=== PATIENT | female | born 1985 | race Two or more races ===

== ENCOUNTER → 2021-01-16 | Emergency (ER) | payer MEDICAID ==
[~2021-01-16] VITALS: Ht 162.6 cm; Wt 86.2 kg
[~2021-01-16] MED LIST: diphenhdrAMINE HCL 25 MG CAP PO ONE; methylPREDNISolone SOD SUCC 125 MG/2 ML VL IM ONE
[2021-01-16 20:44] VITALS: BP 150/92
== END | disposition home or self-care (01) ==
LOC: ER 19:30
DX: L25.9 Unspecified contact dermatitis, unspecified cause (principal)
CPT/HCPCS: 96372; 99283; J2930

== ENCOUNTER 2024-08-30 03:39 | Inpatient (IN) | payer BC, MEDICAID ==
[~2024-08-30] VITALS: Ht 162.6 cm; Wt 87.2 kg
[2024-08-30] VITALS (7 sets, daily range): BP systolic 117–127; BP diastolic 63–78; PULSE 64–80; RESP 12–20; TEMP 97.5–98; O2SAT 96–100
[2024-08-30] MEDS: ONDANSETRON ODT 4 MG TAB PO ONE (04:00)
--- NOTE | 2024-08-30 04:17 | ED.PDOC ---
History of Present Illness HPI Comments 38 y/o obese F, with a history of asthma and cholecystectomy, presents with c/o 10/10 sharp, epigastric abdominal pain, that radiates to her back, with associated nausea and chills, after eating 'rice and shrimp' 12x hours ago. Patient endorses on no recent ailments, sick contacts, travel, injuries, or substance use. She denies having any vomiting, diarrhea, urinary symptoms, fever, chills, or further associated symptoms. 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: No Pertinent METAL CONTROL WORKER History Family History Family History: Unknown Social History Smoker: Non-Smoker Alcohol: Denies ETOH Use Drugs: Denies Drug Use Lives In: Home All Other Systems: Reviewed and Negative (Comprehensive systems review obtained and negative except for what is stated in the HPI.) Physical Exam General Appearance: Mild Distress, Obese HEENT: Normal ENT Inspection, Pharynx Normal, TMs Normal Neck: Full Range of Motion, Non-Tender, Normal, Normal Inspection Respiratory: Chest Non-Tender, Lungs Clear, No Accessory Muscle Use, No Respiratory Distress, Normal Breath Sounds Cardiovascular: No Edema, No JVD, No Murmur, No Gallop, Normal Peripheral Pulses, Regular Rate/Rhythm Breast Exam: Deferred Gastrointestinal: No Organomegaly, Non Tender, No Pulsatile Mass, Normal Bowel Sounds, Soft Genitalia: Deferred Pelvic: Deferred Rectal: Deferred Extremities: No calf tenderness, Normal capillary refill, Normal inspection, Normal range of motion, Non-tender, No pedal edema Musculoskeletal : Apperance: Normal Neurologic: Alert, state's attorney II-XII nml as Tested, No Motor Deficits, Normal Affect, Normal Mood, No Sensory Deficits Cerebellar Function: Normal Reflexes: Normal Skin: Dry, Normal Color, Warm Lymphatic: No Adenopathy Was a procedure done? Was a procedure done?: No Differential Dx Considerations may include: gastritis, gastroenteritis, PUD, GERD, cholelithiasis, UTI, viral syndrome, , among others X-Ray, Labs, Meds, VS Vital Signs Date Time Temp Pulse Resp B/P (MAP) Pulse Ox O2 Delivery O2 Flow Rate FiO2 08/30/24 04:00 97.8 109 18 126/78 (94) 100 97.8 Lab Test 08/30/24 04:44 08/30/24 04:00 Range/Units White Blood Count 7.5 4.4-10.8 10^3/uL Red Blood Count 4.76 4.0-5.20 10^6/uL Hemoglobin 9.1 L 12.2-16.2 g/dL Hematocrit 30.0 L 36.0-46.0 % Mean Corpuscular Volume 62.9 L 80.0-100.0 fL Mean Corpuscular Hemoglobin 19.0 L 28.0-32.0 pg Mean Corpuscular Hemoglobin Concent 30.2 L 32.0-36.0 g/dL Red Cell Distribution Width 19.4 H 11.8-14.3 % Platelet Count 401 140-450 10^3/uL Mean Platelet Volume 7.0 6.9-10.8 fL Neutrophils (%) (Auto) 64.9 37.0-80.0 % Lymphocytes (%) (Auto) 27.4 10.0-50.0 % Monocytes (%) (Auto) 3.9 0.0-12.0 % Eosinophils (%) (Auto) 3.1 0.0-7.0 % Basophils (%) (Auto) 0.7 0.0-2.0 % Neutrophils # (Auto) 4.9 1.6-8.6 10 ^3/uL Lymphocytes # (Auto) 2.1 0.4-5.4 10 ^3/uL Monocytes # (Auto) 0.3 0-1.3 10 ^3/uL Eosinophils # (Auto) 0.2 0-0.8 10 ^3/uL Basophils # (Auto) 0.1 0-0.2 10 ^3/uL Nucleated Red Blood Cells 0.0 % Sodium Level Pending Potassium Level Pending Chloride Level Pending Carbon Dioxide Level Pending Anion Gap Pending Blood Urea Nitrogen Pending Creatinine Pending Glomerular Filtration Rate Calc Pending BUN/Creatinine Ratio Pending Serum Glucose Pending Calcium Level Pending Total Bilirubin Pending Aspartate Amino Transferase (AST) Pending Alanine Aminotransferase (ALT) Pending Alkaline Phosphatase Pending Total Protein Pending Albumin Pending Lipase Pending Urine Color Colorless Yellow Urine Clarity Clear Clear Urine pH 7.5 5.0-9.0 Urine Specific [place] 1.012 1.001-1.035 Urine Protein Negative Negative Urine Ketones Negative Negative Urine Blood 3+ H Negative /uL Urine Nitrite Negative Negative Urine Bilirubin Negative Negative Urine Urobilinogen Normal Negative mg/dL Urine Leukocyte Esterase 1+ Negative /uL Urine RBC 149 0 - 4 /hpf Urine Microscopic WBC 1 0-5 /HPF Urine Squamous Epithelial Cells Few <5 /hpf Urine Bacteria None seen None Seen /hpf Urine Glucose Normal Normal mg/dL Urine Test Negative Negative Time of 1ST Reevaluation: 04:30 Reevaluation 1ST: Unchanged Patient Education/Counseling: Diagnosis, Treatment, Need For Follow Up Family Education/Counseling: No Family Present Departure 1 Departure Time of Disposition: 07:00 Impression: Primary Impression: Acute abdominal pain Additional Impression: Symptomatic anemia Disposition: 09 ADMITTED INPATIENT (38-year-old female with a history of obesity and prior cholecystectomy no with severe epigastric pain) Condition: Guarded Discharged With: Self Comments Epigastric Pain with Anemia Chief Complaint: Epigastric pain History of Present Illness: 38-year-old female presents with severe epigastric pain radiating to her back, accompanied by nausea and chills. Symptoms began approximately 12 hours prior to presentation. Patient reports associated symptoms of nausea. The pain is characterized as severe, and the radiation pattern suggests possible upper gastrointestinal involvement. 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 Problem List: 1. Acute epigastric pain 2. Microcytic anemia (Hgb 9.0, Hct 30) 3. Obesity Differential Diagnosis: 1. Gastritis 2. Peptic ulcer disease with bleeding 3. Upper GI bleeding 4. Iron deficiency anemia ED Course: Patient received Protonix IV bolus and continuous infusion. Decision made to admit for monitoring of anemia and GI consultation. Assessment and Plan: 1. Epigastric Pain with Suspected Upper GI Bleeding: - Initiated on IV Protonix bolus and continuous infusion - Admission to hospital for further monitoring - GI consultation to be obtained for endoscopic evaluation 2. Microcytic Anemia: - Close monitoring of hemoglobin and hematocrit - Further workup of underlying cause during admission - Iron studies to be obtained 3. Disposition: Admit to hospital under Medicine service with GI consultation Billing Information: ICD-10: R10.13 - Epigastric pain ICD-10: D50.9 - Iron deficiency anemia, unspecified ICD-10: K29.70 - Gastritis, unspecified, without bleeding Critical Care Note Critical Care Time?: No Stability Stability form required: No Heart Score Heart Score: Heart Score Response (Comments) Value History N/A 0 EKG N/A 0 Age N/A 0 Risk Factors N/A 0 Troponin N/A 0 Total 0 I personally scribed for CHARO MAYS MD ([email or web address]) on 08/30/24 at 04:17. Electronically submitted by David Bernard [email or web address]). CHARO MAYS MD August 30, 2024 04:17
[2024-08-30 04:25] LABS: Urine Bacteria None Seen /hpf (None Seen)
[2024-08-30 04:51] LABS: Urine Blood 3+ /uL (Negative); Urine Clarity Clear (Clear); Urine Color Colorless (Yellow); Urine Protein, UAD Negative (Negative); Urine Specific Gravity 1.012 (1.001-1.035); Urine Squamous Epithelial Cell FEW /hpf (<5); Urine Urobilinogen Normal (Negative); Urine WBC 1 /HPF (0-5); Urine pH 7.5 (5.0-9.0)
[2024-08-30 05:06] LABS: Basophils # (auto) 0.1 10 ^3/uL (0-0.2); Basophils % (auto) 0.7 % (0.0-2.0); Eosinophils # (auto) 0.2 10 ^3/uL (0-0.8); Hemoglobin 9.1 g/dL (12.2-16.2); Lymphocytes # (auto) 2.1 10 ^3/uL (0.4-5.4); Mean Corpuscular Volume 62.9 fL (80.0-100.0); Monocytes # (auto) 0.3 10 ^3/uL (0-1.3); Neutrophils # (auto) 4.9 10 ^3/uL (1.6-8.6); White Blood Cell 7.5 10^3/uL (4.4-10.8)
[2024-08-30 05:10] LABS: Eosinophils % (auto) 3.1 % (0.0-7.0); Lymphocytes % (auto) 27.4 % (10.0-50.0); Mean Corpuscular Hgb Conc. 30.2 g/dL (32.0-36.0); Monocytes % (auto) 3.9 % (0.0-12.0); Neutrophils % (auto) 64.9 % (37.0-80.0); Platelet Count (auto) 401 10^3/uL (140-450); Red Blood Cells 4.76 10^6/uL (4.0-5.20); Red Cell Distribution Width 19.4 % (11.8-14.3)
[2024-08-30 05:14] LABS: Alanine Aminotransferase 15 U/L (7-40); Albumin 4.5 g/dL (3.2-4.8); Alkaline Phosphatase 76 U/L (46-116); Anion Gap 9 (5-15); Aspartate Aminotransferase 15 U/L (13-40); BUN/Creatinine Ratio 12.2 (10.0-20.0); Blood Urea Nitrogen 9 mg/dL (9-23); Carbon Dioxide 24 mmol/L (20-31); Chloride 105 mmol/L (98-107); Lipase 30 U/L (12-53); Potassium 3.7 mmol/L (3.5-5.1); Sodium 138 mmol/L (136-145); Total Protein 7.9 g/dL (5.7-8.2)
[2024-08-30 05:15] LABS: Bilirubin, Total 0.4 mg/dL (0.2-1.0)
[2024-08-30 05:52] LABS: Glucose 106 mg/dL (74-106)
[2024-08-30] MEDS ORDERED: PANTOPRAZOLE 40mg/50ML NS AE 50 ML IV ONE (06:00)
[2024-08-30 06:38] LABS: INR 0.96 (0.9-1.15); Partial Thromboplastin Time 25.9 SEC (24.5-34.5); Prothrombin Time 10.2 sec (9.3-11.8)
[2024-08-30] MEDS: SODIUM CHLORIDE 0.9% 1,000 ML IVB ONE (06:39)
[2024-08-30] MEDS: FAMOTIDINE 20 MG TAB PO ONE (06:43)
[2024-08-30] MEDS: PANTOPRAZOLE 40 MG/10 ML VIAL INJ IV ONE (06:43)
[2024-08-30] MEDS: MAALOX PLUS or MAALOX 30 ML PO ONE (06:43)
[2024-08-30] MEDS: ONDANSETRON HCL 4 MG/2 ML VIAL IV ONE (06:43)
[2024-08-30] MEDS: MORPHINE SULFATE 4 MG/ML SYR/VIAL IV ONE (06:44)
[2024-08-30] MEDS ORDERED: IOHEXOL 300 MG/ML 100ML BOTTLE IJ ONE (07:17)
--- NOTE | 2024-08-30 07:52 | DVH ---
Exam: CT CT AB PEL WITH IV CON ONLY History: abd pain Comparison Study: None Contrast: Type of contrast: Omnipaque 300 Contrast injected: 100 mL Contrast wasted: 0 TECHNIQUE: A digital station engineer main line image was obtained. During the uneventful, intravenous administration of c ontrast material, multislice data acquisition was obtained through the abdomen and pelvis. The data s et was subsequently reconstructed into axial images. Images were reviewed on a work station using a c ombination of axial and multiplanar using a variety of window levels and settings. Radiation Dose Information: CT Dose: CTDI volume is 23.3 mGy. Dose-length product is 1375.38 mGy*cm FINDINGS: Lung Bases: No acute or significant lung base finding. Normal heart size. No pleural or pericardial effusion. Liver: The liver is normal in size. No focal lesions. Normal hepatic vascular enhancement. Gallbladder and Biliary Tree: Cholecystectomy. No biliary ductal dilatation. Spleen: Unremarkable Pancreas: The pancreas is normal in appearance without focal lesions or abnormal enhancement. Adrenal Glands: Unremarkable Kidneys: Kidneys demonstrate normal symmetric enhancement without focal lesions, calculi or hydroneph rosis. Bladder: Unremarkable Bowel: The stomach is grossly normal in appearance. Small bowel is normal in caliber. Colonic divert iculosis without acute diverticulitis. Normal appendix. Peritoneal cavity: No pneumoperitoneum. No ascites. Lymphadenopathy: No mesenteric, retroperitoneal or periportal lymphadenopathy. Abdominal Wall and Mesentery: Unremarkable. Vasculature: The visualized abdominal aorta is normal in size and caliber. Abdominal and pelvic vess els demonstrate normal enhancement. Pelvic Organs: Unremarkable Musculoskeletal: No aggressive focal bony lesions, acute fractures or dislocation. Soft tissues: Unremarkable. IMPRESSION: 1. No acute abnormality in the abdomen or pelvis. 2. Colonic diverticulosis without acute diverticulitis. All CT scans at this medical facility are performed using dose modulation techniques as appropriate t o a performed exam including the following: Automated exposure control was utilized; adjustment of th e MA and/or KV according to patient size; and use of iterative reconstruction technique.
--- NOTE | 2024-08-30 08:56 | DVHHP2 ---
Admitting Diagnosis: Chest Pain and Epigastric pain History of Present Illness Patient is a 38 y/o Female with a PMHx of asthma and cholecystectomy with 10/10 sharp chest pain, epigastric abd pain radiating to her back. Patient states that she also has nausea and chills. Patient states that she had no sick contacts. Patient denies any recent travel. Patient denies vomiting or diarrhea. Patient also denies having urinary symptoms, fever, chills or trauma to the area. While in the emergency department the patient was evaluated by the provider, Labs, vital signs, and imagining monitored. Patient will be admitted for further evaluation and treatment. I discussed admission with the patient/family and is in agreement to treatment plan. Allergies: Coded Allergies: NO KNOWN ALLERGIES (Unverified , 06/24/15) Home Meds Reported Medications Ferrous Sulfate (Iron (Ferrous Sulfate)) 50 Mg Tab, 325 MG PO DAILY, TAB 08/30/24 Current Medications Current Medications Medications (Trade) Dose Ordered Sig/Berenice Route PRN Reason Start Time Stop Time Status Last Admin Sodium Chloride 1,000 ml @ 120 mls/hr Q8H20M IV 08/30/24 09:00 Ondansetron HCl (Zofran) 4 mg Q4HP PRN IV NAUSEA / VOMITING 08/30/24 09:00 Morphine Sulfate 2 mg Q4HPRN PRN IV SEVERE PAIN (7-10 PAIN SCALE) 08/30/24 09:00 Nitroglycerin (Ntrostat Sublingual) 0.4 mg Q5MINP PRN SL FOR CHEST PAIN 08/30/24 09:00 Morphine Sulfate 2 mg Q30M PRN IV FOR CHEST PAIN 08/30/24 09:00 Sucralfate (Carafate Susp) 1 gm QID@0600,1130,1700,2200 PO 08/30/24 17:00 08/30/24 16:20 Pantoprazole Sodium (Protonix) 40 mg BID IV 08/30/24 22:00 Ferrous Sulfate 325 mg DAILY PO 08/31/24 10:00 Review of Systems Constitutional: denies chills, denies fever, denies malaise Eyes: denies eye pain, denies vision change ENT: denies ear pain, denies headache, denies nasal congestion, denies painful swallowing, denies voice change Cardiovascular: denies chest pain, denies edema, denies orthopnea, denies palpitations, denies paroxysmal nocturnal dyspnea Respiratory: denies cough, denies shortness of breath Gastrointestinal: denies constipation, denies diarrhea, denies nausea, denies vomiting Genitourinary: denies dysuria, denies frequent urination, denies urethral discharge Musculoskeletal: denies back pain, denies joint pain, denies muscle pain Skin: denies bruising, denies itching, denies rash Neurological: denies focal weakness, denies headache, denies sensory changes Psychiatric: denies anxiety, denies depression Endocrine: denies polydipsia, denies polyuria Hematologic/Lymphatic: denies easy bleeding, denies easy bruising, denies enlarged lymph nodes Allergic/Immunologic: denies allergy, denies hives Vital Signs Vital Signs Date Time Temp Pulse Resp B/P (MAP) Pulse Ox O2 Delivery O2 Flow Rate FiO2 08/30/24 17:00 97.7 75 18 127/72 (90) 99 97.7 08/30/24 13:55 Room Air* 0 21 Physical Exam General Appearance: alert, no distress HEENT: EOMI, PERRLA, normal external inspect of ears, no icterus, no nasal drainage Neck: no carotid bruit, no jugular venous distention (JVD), no lymphadenopathy Chest: normal thorax Respiratory: clear to auscultation, normal air movement Cardiovascular: regular rate and rhythm, no diastolic murmur, no jugular venous distention (JVD), no rub, no systolic murmur Abdominal: soft, no hepatomegaly, no mass, no splenomegaly, no tenderness Genitourinary: grossly normal external Musculoskeletal: no joint tenderness, no swelling Extremities: normal pulses, no calf tenderness, no clubbing, no cyanosis, no edema Skin: no bruising, no jaundice, no rash Neurological: alert, No focal deficit Results Labs Test 08/30/24 04:44 08/30/24 04:00 Range/Units White Blood Count 7.5 4.4-10.8 10^3/uL Red Blood Count 4.76 4.0-5.20 10^6/uL Hemoglobin 9.1 L 12.2-16.2 g/dL Hematocrit 30.0 L 36.0-46.0 % Mean Corpuscular Volume 62.9 L 80.0-100.0 fL Mean Corpuscular Hemoglobin 19.0 L 28.0-32.0 pg Mean Corpuscular Hemoglobin Concent 30.2 L 32.0-36.0 g/dL Red Cell Distribution Width 19.4 H 11.8-14.3 % Platelet Count 401 140-450 10^3/uL Mean Platelet Volume 7.0 6.9-10.8 fL Neutrophils (%) (Auto) 64.9 37.0-80.0 % Lymphocytes (%) (Auto) 27.4 10.0-50.0 % Monocytes (%) (Auto) 3.9 0.0-12.0 % Eosinophils (%) (Auto) 3.1 0.0-7.0 % Basophils (%) (Auto) 0.7 0.0-2.0 % Neutrophils # (Auto) 4.9 1.6-8.6 10 ^3/uL Lymphocytes # (Auto) 2.1 0.4-5.4 10 ^3/uL Monocytes # (Auto) 0.3 0-1.3 10 ^3/uL Eosinophils # (Auto) 0.2 0-0.8 10 ^3/uL Basophils # (Auto) 0.1 0-0.2 10 ^3/uL Nucleated Red Blood Cells 0.0 % Prothrombin Time 10.2 9.3-11.8 sec Prothrombin Time INR 0.96 0.9-1.15 Activated Partial Thromboplast Time 25.9 24.5-34.5 SEC Sodium Level 138 136-145 mmol/L Potassium Level 3.7 3.5-5.1 mmol/L Chloride Level 105 98-107 mmol/L Carbon Dioxide Level 24 20-31 mmol/L Anion Gap 9 5-15 Blood Urea Nitrogen 9 9-23 mg/dL Creatinine 0.74 0.550-1.02 mg/dL Glomerular Filtration Rate Calc 105 >90 mL/min BUN/Creatinine Ratio 12.2 10.0-20.0 Serum Glucose 106 74-106 mg/dL Calcium Level 9.0 8.7-10.4 mg/dL Total Bilirubin 0.4 0.2-1.0 mg/dL Aspartate Amino Transferase (AST) 15 13-40 U/L Alanine Aminotransferase (ALT) 15 7-40 U/L Alkaline Phosphatase 76 46-116 U/L Total Protein 7.9 5.7-8.2 g/dL Albumin 4.5 3.2-4.8 g/dL Lipase 30 12-53 U/L Urine Color Colorless Yellow Urine Clarity Clear Clear Urine pH 7.5 5.0-9.0 Urine Specific [place] 1.012 1.001-1.035 Urine Protein Negative Negative Urine Ketones Negative Negative Urine Blood 3+ H Negative /uL Urine Nitrite Negative Negative Urine Bilirubin Negative Negative Urine Urobilinogen Normal Negative mg/dL Urine Leukocyte Esterase 1+ Negative /uL Urine RBC 149 0 - 4 /hpf Urine Microscopic WBC 1 0-5 /HPF Urine Squamous Epithelial Cells Few <5 /hpf Urine Bacteria None seen None Seen /hpf Urine Glucose Normal Normal mg/dL Urine Test Negative Negative Admitting Diagnosis: 1. GI Bleed Medication, monitoring 2. Gastritis Protonix gtt 3. Hiatal hernia Send Stool for OB 4. Menometrorrhagia IV fluids 5. Iron Deficiency anemia Iron Replacement Plan discussed with: Patient, Other KARINA GLASER NP August 30, 2024 08:56
[2024-08-30] MEDS ORDERED: ONDANSETRON HCL 4 MG/2 ML VIAL IV PRN (09:00)
[2024-08-30] MEDS ORDERED: NITROGLYCERIN 0.4 MG SL TAB SL PRN (09:00)
[2024-08-30] MEDS ORDERED: MORPHINE SULFATE INJ 2 MG/ml SYRG IV PRN (09:00)
--- NOTE | 2024-08-30 11:01 | DVHINCON2 ---
GI Consult Consult Note GI consult note Date of Consultation: 08/30/2024 Chief Complaint: GI bleed Referring Physician: ALFREDITO DELEON H&P: 38-year-old female, with past history, of asthma and cholecystectomy, presents to ER with complains of epigastric abdominal pain started at 3:00 p.m. yesterday after eating rice and shrimp. Patient describes the pain as being severe nine on a 0-10 scale, and is constant in nature. Patient complains of nausea. No vomiting or hematemesis. Last BM 6:00 p.m. yesterday denies melena or red blood in stool. Patient diagnosed with H. pylori infection about a month ago, and has completed treatment for this. No EGD in past. Has appointment with curam developer in September per patient. Denies any blood thinners Patient has history of anemia, takes iron supplements regularly, admits to having irregular periods with heavy bleeding and is under the care of a yardage control clerk Denies weight loss. Denies GERD symptoms Past Medical History: Asthma Past Surgical History: Cholecystectomy Social History: NO smoking, drinking ETOH and use of illegal drugs. Family History: Unknown Review of Systems: Constitutional: no fever, chill, weight loss HEENT: no eye pain, no hearing loss, no oral lesion, no scleral icterus Heart: no chest pain, no chest pressure Lung: no cough, no dyspnea with exertion Abdomen: see HPI Physical exam: General: NAD, AAOX3 Chest: lung beal clear to auscultation Heart: RRR, no murmur Abdomen: non-distended, moderate epigastric tenderness to palpation, +BS Labs: Labs Test 08/30/24 04:44 08/30/24 04:00 Range/Units White Blood Count 7.5 4.4-10.8 10^3/uL Red Blood Count 4.76 4.0-5.20 10^6/uL Hemoglobin 9.1 L 12.2-16.2 g/dL Hematocrit 30.0 L 36.0-46.0 % Mean Corpuscular Volume 62.9 L 80.0-100.0 fL Mean Corpuscular Hemoglobin 19.0 L 28.0-32.0 pg Mean Corpuscular Hemoglobin Concent 30.2 L 32.0-36.0 g/dL Red Cell Distribution Width 19.4 H 11.8-14.3 % Platelet Count 401 140-450 10^3/uL Mean Platelet Volume 7.0 6.9-10.8 fL Neutrophils (%) (Auto) 64.9 37.0-80.0 % Lymphocytes (%) (Auto) 27.4 10.0-50.0 % Monocytes (%) (Auto) 3.9 0.0-12.0 % Eosinophils (%) (Auto) 3.1 0.0-7.0 % Basophils (%) (Auto) 0.7 0.0-2.0 % Neutrophils # (Auto) 4.9 1.6-8.6 10 ^3/uL Lymphocytes # (Auto) 2.1 0.4-5.4 10 ^3/uL Monocytes # (Auto) 0.3 0-1.3 10 ^3/uL Eosinophils # (Auto) 0.2 0-0.8 10 ^3/uL Basophils # (Auto) 0.1 0-0.2 10 ^3/uL Nucleated Red Blood Cells 0.0 % Prothrombin Time 10.2 9.3-11.8 sec Prothrombin Time INR 0.96 0.9-1.15 Activated Partial Thromboplast Time 25.9 24.5-34.5 SEC Sodium Level 138 136-145 mmol/L Potassium Level 3.7 3.5-5.1 mmol/L Chloride Level 105 98-107 mmol/L Carbon Dioxide Level 24 20-31 mmol/L Anion Gap 9 5-15 Blood Urea Nitrogen 9 9-23 mg/dL Creatinine 0.74 0.550-1.02 mg/dL Glomerular Filtration Rate Calc 105 >90 mL/min BUN/Creatinine Ratio 12.2 10.0-20.0 Serum Glucose 106 74-106 mg/dL Calcium Level 9.0 8.7-10.4 mg/dL Total Bilirubin 0.4 0.2-1.0 mg/dL Aspartate Amino Transferase (AST) 15 13-40 U/L Alanine Aminotransferase (ALT) 15 7-40 U/L Alkaline Phosphatase 76 46-116 U/L Total Protein 7.9 5.7-8.2 g/dL Albumin 4.5 3.2-4.8 g/dL Lipase 30 12-53 U/L Urine Color Colorless Yellow Urine Clarity Clear Clear Urine pH 7.5 5.0-9.0 Urine Specific [place] 1.012 1.001-1.035 Urine Protein Negative Negative Urine Ketones Negative Negative Urine Blood 3+ H Negative /uL Urine Nitrite Negative Negative Urine Bilirubin Negative Negative Urine Urobilinogen Normal Negative mg/dL Urine Leukocyte Esterase 1+ Negative /uL Urine RBC 149 0 - 4 /hpf Urine Microscopic WBC 1 0-5 /HPF Urine Squamous Epithelial Cells Few <5 /hpf Urine Bacteria None seen None Seen /hpf Urine Glucose Normal Normal mg/dL Urine Test Negative Negative Imaging: CT abdomen pelvis IMPRESSION: 1. No acute abnormality in the abdomen or pelvis. 2. Colonic diverticulosis without acute diverticulitis. Assessment: Abdominal pain History of anemia Rule out GI bleed History of H pylori infection Plan: Discussed with Dr. Romo - Pt will be scheduled for an EGD today 08/30/2024 . Pt was informed of the risks (bleeding, infection, perforation, reaction to sedation medications and cardiopulmonary arrest) and benefit and is agreeable to undergo the procedures. NPO Discussed plan with patient and RN Thank you for this consult Date of Service: August 30, 2024 Billing Provider: TRACIE DA SILVA Common Visit Codes: CONSULT ONLY Consultation Codes: [id number] CONSULT <60MIN TRACIE DA SILVA August 30, 2024 11:01
[2024-08-30] MEDS ORDERED: NALOXONE HCL 0.4 MG/ML VIAL ONE (11:57)
[2024-08-30] MEDS ORDERED: FLUMAZENIL 0.1 MG/ML INJ 10ML MDV IV ONE (11:57)
[2024-08-30] MEDS ORDERED: SODIUM CHLORIDE LOCK 10 ML ONE (11:57)
[2024-08-30] MEDS: LIDOCAINE VISCOUS 2% 15ML UD ONE (12:30)
[2024-08-30] MEDS: fentaNYL CITRATE 100 MCG/2 ML VL ONE (12:33)
[2024-08-30] MEDS: MIDAZOLAM HCL 5 MG/ML-1ML VIAL ONE (12:33)
[2024-08-30] MEDS: diphenhdrAMINE HCL 50 MG/1 ML VL ONE (12:33)
--- NOTE | 2024-08-30 12:45 | DVHOP2 ---
Operative Report DATE OF OPERATION: 08/30/24 PROCEDURE: Upper Endoscopy with biopsy PREOPERATIVE INDICATION: The patient is a 38 -year-old female undergoing endoscopy for epigastric pain dyspepsia and anemia POSTOPERATIVE DIAGNOSES: 1. Ugfwwnsg-mu-txumun gastritis with multiple pre-pyloric antral gastric erosions and small ulcers 2. There was a 1 cm duodenal bulb ulcer and a 2nd 5 mm duodenal ulcer with surrounding duodenitis 3. 0.5 cm sliding-type hiatal hernia with mild grade a erosive esophagitis 4. Otherwise normal examination up to the 2nd and 3rd part of the duodenum with no active bleeding and good bile drainage PROCEDURE PERFORMED BY: Lisa Romo GI NURSE: Gama SCOPE: Olympus videoendoscope. ASA CLASS: 2 PREOPERATIVE MEDICATIONS: Versed 2 mg, Fentanyl 50 mcg, Benadryl 50 mg I administered moderate sedation throughout this _7_ minutes procedure. An independent trained observer pushed medications at my direction, and monitored the patient's level of consciousness and physiological status throughout. PROCEDURE IN DETAIL: After obtaining an informed consent, the patient was placed on left lateral decubitus position. The patient was then sedated with the above medications. A bite block was placed between her teeth. The endoscope was then passed through the oropharynx, into the esophagus, and through the stomach and pylorus up to the second and third part of the duodenum. The endoscope was then withdrawn. The 2nd and 3rd part of the duodenal were normal with good bile drainage. The duodenal bulb and postbulbar area showed moderate duodenitis . Duodenal biopsies were She had a larger 1 cm duodenal bulb ulcer on the anterior surface of the duodenal bulb and another 5 mm ulcer on the posterior surface The pre-pyloric area antrum and distal body showed [id number] gastritis with multiple pre-pyloric antral gastric erosions and small ulcers On retroflexion the fundus cardia and angularis were normal. Gastric biopsies were obtained. The endoscope was then withdrawn into distal esophagus Patient had a 0.5 cm sliding-type hiatal hernia with slightly irregular squamocolumnar junction minimal grade a erosive esophagitis. GE junction biopsies were obtained. The remaining distal and proximal esophagus and oropharynx were unremarkable. The patient tolerated the procedure well without difficulty. COMPLICATIONS : None SPECIMENS: Duodenal biopsies Gastric biopsies GE junction biopsies DISPOSITION: Transfer back to the floor Stable PLAN: 1. Await for biopsy result 2. Will place pt on Protonix 40 mg bid IV 3. Carafate suspension 1 g p.o. 4 times a day 4. Full liquid diet advance to soft mechanical 5. DC aspirin NSAIDs smoking alcohol 6. Outpatient follow up with me in 2-4 weeks to review results and discuss further management 7. Outpatient follow up with me to arrange elective colonoscopy in the near future 8. Continue iron supplements because of her metromenorrhagia LISA ROMO MD August 30, 2024 12:45
[2024-08-30] MEDS ORDERED: FERR1TAB36 PO (15:45)
[2024-08-30] MEDS: SODIUM CHLORIDE 0.9% 1,000 ML IV SCH (16:12)
[2024-08-30] MEDS: SUCRALFATE 1 GM/10 ML ORAL SUSP PO SCH (16:20)
[2024-08-30] MEDS ORDERED: AMMONIA 0.33 ML INHALANT IN ONE (20:05)
[2024-08-30] MEDS: PANTOPRAZOLE 40 MG/10 ML VIAL INJ IV SCH (21:29)
[2024-08-30] MEDS: MORPHINE SULFATE INJ 2 MG/ml SYRG IV PRN (21:30)
[2024-08-31] VITALS (7 sets, daily range): BP systolic 106–116; BP diastolic 64–72; PULSE 68–83; RESP 14–20; TEMP 97.8–98.4; O2SAT 96–100
[2024-08-31 05:58] LABS: Basophils # (auto) 0 10 ^3/uL (0-0.2); Eosinophils # (auto) 0.2 10 ^3/uL (0-0.8); Monocytes # (auto) 0.2 10 ^3/uL (0-1.3); Neutrophils # (auto) 2.1 10 ^3/uL (1.6-8.6); Neutrophils % (auto) 46.1 % (37.0-80.0); White Blood Cell 4.5 10^3/uL (4.4-10.8)
[2024-08-31 06:04] LABS: Eosinophils % (auto) 3.6 % (0.0-7.0); Hematocrit 26.8 % (36.0-46.0); Lymphocytes % (auto) 44.7 % (10.0-50.0); Mean Corpuscular Hgb Conc. 29.8 g/dL (32.0-36.0); Mean Corpuscular Volume 63.6 fL (80.0-100.0); Monocytes % (auto) 4.6 % (0.0-12.0); Platelet Count (auto) 326 10^3/uL (140-450); Red Blood Cells 4.22 10^6/uL (4.0-5.20); Red Cell Distribution Width 19.6 % (11.8-14.3)
[2024-08-31 06:22] LABS: Alanine Aminotransferase 11 U/L (7-40); Albumin 3.8 g/dL (3.2-4.8); Alkaline Phosphatase 65 U/L (46-116); Anion Gap 8 (5-15); BUN/Creatinine Ratio 9.5 (10.0-20.0); Carbon Dioxide 25 mmol/L (20-31); Glucose 81 mg/dL (74-106); Potassium 3.8 mmol/L (3.5-5.1); Sodium 140 mmol/L (136-145); Total Protein 6.7 g/dL (5.7-8.2)
[2024-08-31 06:23] LABS: Bilirubin, Total 0.4 mg/dL (0.2-1.0)
[2024-08-31 06:33] LABS: Aspartate Aminotransferase 12 U/L (13-40); Blood Urea Nitrogen 6 mg/dL (9-23); Calcium 8.2 mg/dL (8.7-10.4); Chloride 107 mmol/L (98-107)
[2024-08-31] MEDS: FERROUS SULFATE 325mg EC TAB PO SCH (07:29)
[2024-08-31] MEDS ORDERED: SUCR1TAB31 OR (12:28)
[2024-08-31] MEDS ORDERED: PANT40TA2 PO (12:28)
--- NOTE | 2024-08-31 12:32 | DVHDS2 ---
Discharge Summary Date of Admission August 30, 2024 at 08:54 Date of Discharge: August 31, 2024 Labs/Diagnostic Data: Laboratory Results Test 08/31/24 05:13 08/30/24 04:44 08/30/24 04:00 White Blood Count 4.5 10^3/uL (4.4-10.8) Red Blood Count 4.22 10^6/uL (4.0-5.20) Hemoglobin 8.0 g/dL (12.2-16.2) Hematocrit 26.8 % (36.0-46.0) Mean Corpuscular Volume 63.6 fL (80.0-100.0) Mean Corpuscular Hemoglobin 19.0 pg (28.0-32.0) Mean Corpuscular Hemoglobin Concent 29.8 g/dL (32.0-36.0) Red Cell Distribution Width 19.6 % (11.8-14.3) Platelet Count 326 10^3/uL (140-450) Mean Platelet Volume 7.0 fL (6.9-10.8) Neutrophils (%) (Auto) 46.1 % (37.0-80.0) Lymphocytes (%) (Auto) 44.7 % (10.0-50.0) Monocytes (%) (Auto) 4.6 % (0.0-12.0) Eosinophils (%) (Auto) 3.6 % (0.0-7.0) Basophils (%) (Auto) 1.0 % (0.0-2.0) Neutrophils # (Auto) 2.1 10 ^3/uL (1.6-8.6) Lymphocytes # (Auto) 2.0 10 ^3/uL (0.4-5.4) Monocytes # (Auto) 0.2 10 ^3/uL (0-1.3) Eosinophils # (Auto) 0.2 10 ^3/uL (0-0.8) Basophils # (Auto) 0 10 ^3/uL (0-0.2) Nucleated Red Blood Cells 0.0 % Sodium Level 140 mmol/L (136-145) Potassium Level 3.8 mmol/L (3.5-5.1) Chloride Level 107 mmol/L (98-107) Carbon Dioxide Level 25 mmol/L (20-31) Anion Gap 8 (5-15) Blood Urea Nitrogen 6 mg/dL (9-23) Creatinine 0.63 mg/dL (0.550-1.02) Glomerular Filtration Rate Calc 115 mL/min (>90) BUN/Creatinine Ratio 9.5 (10.0-20.0) Serum Glucose 81 mg/dL (74-106) Calcium Level 8.2 mg/dL (8.7-10.4) Total Bilirubin 0.4 mg/dL (0.2-1.0) Aspartate Amino Transferase (AST) 12 U/L (13-40) Alanine Aminotransferase (ALT) 11 U/L (7-40) Alkaline Phosphatase 65 U/L (46-116) Total Protein 6.7 g/dL (5.7-8.2) Albumin 3.8 g/dL (3.2-4.8) Prothrombin Time 10.2 sec (9.3-11.8) Prothrombin Time INR 0.96 (0.9-1.15) Activated Partial Thromboplast Time 25.9 SEC (24.5-34.5) Lipase 30 U/L (12-53) Urine Color Colorless (Yellow) Urine Clarity Clear (Clear) Urine pH 7.5 (5.0-9.0) Urine Specific [place] 1.012 (1.001-1.035) Urine Protein Negative (Negative) Urine Ketones Negative (Negative) Urine Blood 3+ /uL (Negative) Urine Nitrite Negative (Negative) Urine Bilirubin Negative (Negative) Urine Urobilinogen Normal mg/dL (Negative) Urine Leukocyte Esterase 1+ /uL (Negative) Urine RBC 149 /hpf (0 - 4) Urine Microscopic WBC 1 /HPF (0-5) Urine Squamous Epithelial Cells Few /hpf (<5) Urine Bacteria None seen /hpf (None Seen) Urine Glucose Normal mg/dL (Normal) Urine Test Negative (Negative) Other Laboratory Tests 08/31/24 05:13 Brief Hx & Hospital Course: Patient is a 38 y/o Female with a PMHx of asthma and cholecystectomy with 10/10 sharp chest pain, epigastric abd pain radiating to her back. Patient states that she also has nausea and chills. Patient states that she had no sick contacts. Patient denies any recent travel. Patient denies vomiting or diarrhea. Patient also denies having urinary symptoms, fever, chills or trauma to the area. While in the emergency department the patient was evaluated by the provider, Labs, vital signs, and imagining monitored. Patient was admitted on August 30, 2024. Patient had abdominal pain and she had acute blood loss anemia related to menorrhagia, and also to gastritis, and duodenal ulcers, which was found from her EGD with Doctor Demetrius on August 30, 2024. Patient was prescribed Protonix twice a day as well as Carafate four times a day. Patient was also found to have a hiatal hernia. Patient was instructed to continue protonix and carafate outpatient and to continue her oral iron. Patient states she has an appointment for her OBGYN, and she will be starting control soon to assist with her heavy menses cycle. Patient also states she has an outpatient GI follow up appointment, and she was also instructed to follow up with her PCP in one week. There were no complaints or new complaints upon discharge, all questions and concerns were answered. Patient was advised to return to the ER or call 911 if any headaches, dizziness, shortness of breath, chest pain, bleeding, fevers, or worsening of medical condition. Patient/Family was counseled about treatment plan, medications, possible side effects, patientverbalized understanding. All questions were answered to the best of my ability. The patient symptoms improved and they are okay to be DC. Condition at Discharge: Stable Final Diagnosis/Problems List Duodenal ulcer, Gastritis, Hiatal Hernia Anemia r/t GI bleed (no active bleed in hospital) Menometrorrhagia Iron Deficiency anemia Discharge Disposition: Home Discharge Instruct/Medications Diet: Regular Activity: No Restrictions, As Tolerated Follow Up/Referral: pcp 1 week Discharge Statement: "Patient was advised to return to the ER or call 911 if any headaches, dizziness, shortness of breath, chest pain, abdominal pain, bleeding, fevers, or worsening of medical condition. Patient was counseled about treatment plan, medications, possible side effects, patientverbalized understanding. All questions were answered to the best of my ability. This discharge took greater then 30 minutes in planning, reviewing documentation, counseling the patient, and discussing with other team members." ASSESSMENT ASSESSMENT Assessment Duodenal ulcer, Gastritis, Hiatal Hernia Anemia r/t GI bleed (no active bleed in hospital) AKRINA GLASER NP August 31, 2024 12:32
== END 2024-08-31 15:01 | disposition home or self-care (01) | DRG 381 ==
LOC: ER 03:39 → OVERFLOW 08:54 → TELE-CENTR 14:17
PROVIDERS: ADMIT Nurse Practitioner; ATTEND Nurse Practitioner
PROC: 0DB68ZX Excision of Stomach, Via Natural or Artificial Opening Endoscopic, Diagnostic (ICD-10-PCS; 2024-08-30)
PROC: 0DB58ZX Excision of Esophagus, Via Natural or Artificial Opening Endoscopic, Diagnostic (ICD-10-PCS; 2024-08-30)
PROC: 0DB98ZX Excision of Duodenum, Via Natural or Artificial Opening Endoscopic, Diagnostic (ICD-10-PCS; principal; 2024-08-30 12:29)
DX: K22.11 Ulcer of esophagus with bleeding (principal); D62 Acute posthemorrhagic anemia; K26.4 Chronic or unspecified duodenal ulcer with hemorrhage; K29.71 Gastritis, unspecified, with bleeding; K29.81 Duodenitis with bleeding; K25.4 Chronic or unspecified gastric ulcer with hemorrhage; J45.909 Unspecified asthma, uncomplicated; E66.9 Obesity, unspecified; Z68.35 Body mass index [BMI] 35.0-35.9, adult; K44.9 Diaphragmatic hernia without obstruction or gangrene; N92.1 Excessive and frequent menstruation with irregular cycle; K57.30 Diverticulosis of large intestine without perforation or abscess without bleeding; N92.0 Excessive and frequent menstruation with regular cycle; Z86.19 Personal history of other infectious and parasitic diseases
CPT/HCPCS: 36415; 74177; 80053; 81001; 81025; 82270; 83690; 85025; 85610; 85730; 86850; 86900; 86901; G0378; J2250; J2405; J2470; Q0162

== ENCOUNTER 2025-02-20 00:21 | Emergency (ER) | payer BC, MEDICAID ==
[~2025-02-20] VITALS: Ht 167.6 cm; Wt 89.0 kg
[~2025-02-20 00:21] MED LIST changes: +FERR1TAB36 PO; +PANT40TA2 PO; +SUCR1TAB31 OR; -diphenhdrAMINE HCL 25 MG CAP PO ONE; -methylPREDNISolone SOD SUCC 125 MG/2 ML VL IM ONE
--- NOTE | 2025-02-20 00:49 | ED.PDOC ---
History of Present Illness HPI Comments 39-year-old female who came to ER for abdominal pain. Few hours ago patient has started developing right lower quadrant abdominal pain, sharp, constant, radiating to the back, associated with nausea and chills. Denies any urinary symptoms. Denies any possibility of REVIEW OF SYSTEMS: General: No fever, (+) chills, or fatigue HEENT: No sore throat, no earache, no congestion, no neck pain. Cardiac: No chest pain. No palpitations. Lungs: No shortness of breath, no cough. GI: (+) nausea, no vomiting, no diarrhea, no constipation, (+) abdominal pain : No dysuria, frequency, or urgency. No hematuria. Musculoskeletal: No joint pain , no joint swelling, no extremity edema. Skin: No rash, no itching. Neuro: No headache, no dizziness, no weakness EXAM: General: Awake, alert and oriented. No acute distress. Skin: Skin in warm, dry and intact. Appropriate color for ethnicity. HEENT: The head is normocephalic and atraumatic. Conjunctivae are clear without exudates or hemorrhage. Sclera is non-icteric. EOM are intact. No signs of nystagmus. Eyelids are normal in appearance without swelling or lesions. Oral mucosa is pink and moist Neck: The neck is supple with normal range of motion. No JVD. Cardiac: Heart rate and rhythm are normal. No murmurs, gallops, or rubs are auscultated. Respiratory: No signs of respiratory distress. Lung sounds are clear in all lobes bilaterally without rales, rhonchi, or wheezes. Abdominal: Abdomen is soft, positive right lower quadrant tenderness without distention. Positive right CVA tenderness Extremities: Upper and lower extremities are atraumatic in appearance without deformity or edema. Neurological: The patient is awake, alert and oriented to person, place, and time with normal speech. Speech is clear. There is no facial asymmetry. Psychiatric: Appropriate mood and affect. Good judgement and insight Chief Complaint: Abdominal Pain Time Seen by MD: 00:49 Primary Care Provider: JYOTI Reviewed Notes: Nurses Notes Allergies: Coded Allergies: NO KNOWN ALLERGIES (Unverified , 06/24/15) Home Meds Active Scripts Pantoprazole Sodium Sesquihydr (Protonix) 40 Mg Tab, 40 MG PO BID for 30 Days, #60 TAB Prov:KARINA GLASER [employer] 08/31/24 Sucralfate (CARAFATE) 1 Gm Tab, 1 GM OR QID for 30 Days, #120 TAB Prov:KARINA GLASER [employer] 08/31/24 Reported Medications Ferrous Sulfate (Iron (Ferrous Sulfate)) 50 Mg Tab, 325 MG PO DAILY, TAB 08/30/24 Information Source: Patient Mode of Arrival: Ambulatory Past Medical History PAST MEDICAL HISTORY: Anemia, Asthma Surgical History: Cholecystectomy 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 Was a procedure done?: No Differential Dx Considerations may include: Differential diagnoses considered include: Abdominal aortic aneurysm, NC, esophageal rupture, intestinal obstruction, mesenteric ischemia, perforated viscus or solid organ rupture, CHF with hepatomegaly, pneumonia, abscess, appendicitis, biliary disease, diverticulitis, gastritis, gastroenteritis, hepatitis, hernia, inflammatory bowel disease, pancreatitis, peptic ulcer disease, urinary tract infection, ureteral colic, constipation, GERD, irritable syndrome, abdominal wall pain, nonspecific abdominal pain, herpes zoster, nephr olithiasis. Also ruptured ectopic , ovarian torsion/cyst, tubo-ovarian abscess, PID, endometriosis, mittleschmerz. X-Ray, Labs, Meds, VS Vital Signs Date Time Temp Pulse Resp B/P (MAP) Pulse Ox O2 Delivery O2 Flow Rate FiO2 02/20/25 04:29 97.6 82 16 136/86 (103) 99 97.6 02/20/25 01:42 Room Air* 0 21 02/20/25 01:31 97.8 92 16 135/88 (104) 100 97.8 02/20/25 00:22 97.4 95 16 133/88 99 97.4 Lab Test 02/20/25 00:52 02/20/25 00:45 Range/Units White Blood Count 8.3 4.4-10.8 10^3/uL Red Blood Count 4.60 4.0-5.20 10^6/uL Hemoglobin 11.3 L 12.2-16.2 g/dL Hematocrit 34.8 L 36.0-46.0 % Mean Corpuscular Volume 75.5 L 80.0-100.0 fL Mean Corpuscular Hemoglobin 24.5 L 28.0-32.0 pg Mean Corpuscular Hemoglobin Concent 32.4 32.0-36.0 g/dL Red Cell Distribution Width 24.6 H 11.8-14.3 % Platelet Count 346 140-450 10^3/uL Mean Platelet Volume 7.1 6.9-10.8 fL Neutrophils (%) (Auto) 56.6 37.0-80.0 % Lymphocytes (%) (Auto) 34.8 10.0-50.0 % Monocytes (%) (Auto) 4.6 0.0-12.0 % Eosinophils (%) (Auto) 3.3 0.0-7.0 % Basophils (%) (Auto) 0.7 0.0-2.0 % Neutrophils # (Auto) 4.7 1.6-8.6 10 ^3/uL Lymphocytes # (Auto) 2.9 0.4-5.4 10 ^3/uL Monocytes # (Auto) 0.4 0-1.3 10 ^3/uL Eosinophils # (Auto) 0.3 0-0.8 10 ^3/uL Basophils # (Auto) 0.1 0-0.2 10 ^3/uL Nucleated Red Blood Cells 0.0 % Sodium Level 139 136-145 mmol/L Potassium Level 3.3 L 3.5-5.1 mmol/L Chloride Level 101 98-107 mmol/L Carbon Dioxide Level 28 20-31 mmol/L Anion Gap 10 5-15 Blood Urea Nitrogen 9 9-23 mg/dL Creatinine 0.76 0.550-1.02 mg/dL Glomerular Filtration Rate Calc 101 >90 mL/min BUN/Creatinine Ratio 11.8 10.0-20.0 Serum Glucose 89 74-106 mg/dL Lactic Acid Level 0.6 0.4-2.0 mmol/L Calcium Level 9.2 8.7-10.4 mg/dL Total Bilirubin 0.3 0.2-1.0 mg/dL Aspartate Amino Transferase (AST) 23 13-40 U/L Alanine Aminotransferase (ALT) 20 7-40 U/L Alkaline Phosphatase 80 46-116 U/L Total Protein 8.0 5.7-8.2 g/dL Albumin 4.4 3.2-4.8 g/dL Lipase 35 12-53 U/L Urine Color Yellow Yellow Urine Clarity Turbid H Clear Urine pH 5.5 5.0-9.0 Urine Specific [place] 1.024 1.001-1.035 Urine Protein Trace H Negative Urine Ketones Trace Negative Urine Blood Negative Negative /uL Urine Nitrite Negative Negative Urine Bilirubin Negative Negative Urine Urobilinogen Normal Negative mg/dL Urine Leukocyte Esterase Negative Negative /uL Urine RBC 2 0 - 4 /hpf Urine Microscopic WBC 3 0-5 /HPF Urine Squamous Epithelial Cells Mod <5 /hpf Urine Bacteria None seen None Seen /hpf Urine Mucus Few None Seen Urine Glucose Normal Normal mg/dL Current Medications Medications (Trade) Dose Ordered Sig/Berenice Route Start Time Stop Time Status Last Admin Ketorolac Tromethamine (Toradol Injection) 30 mg ONCE ONCE IM 02/20/25 00:45 02/20/25 00:46 DC 02/20/25 01:41 Tramadol HCl (Ultram) 50 mg ONCE ONCE PO 02/20/25 00:45 02/20/25 00:46 DC 02/20/25 01:41 Acetaminophen (Tylenol Tablet) 650 mg ONCE ONCE PO 02/20/25 00:45 02/20/25 00:46 DC 02/20/25 01:42 Exam: CT CT AB PEL WO CON-NO ORAL OR IV History: Right lower quadrant abdominal pain Comparison Study: CT CT AB PEL WITH IV CON ONLY on DOS: 08/30/24 Technique: Multidetector spiral CT of the abdomen was performed from lung bases to pubic symphysis. Imaging was performed without IV contrast. Axial, coronal and sagittal multiplanar reformats were obtained from the axial data set by the technologist. Radiation Dose : 1. Abdomen/Pelvis: CTDIvol 18.02 mGy, DLP 1029.65 mGy*cm. Findings: Evaluation of solid organs is limited due to lack of intravenous contrast use. Lung Bases: No acute or significant lung base finding. Normal heart size. No pleural or pericardial effusion. Liver: The liver is normal in size. No focal lesions. Gallbladder and Biliary Tree: Gallbladder is surgically absent. Spleen: Unremarkable Pancreas: The pancreas is grossly normal in appearance. Adrenal Glands: Unremarkable Kidneys: Kidneys are grossly normal without calculi or hydronephrosis. Bladder: Grossly unremarkable for degree of distention. Bowel: The stomach is grossly normal in appearance. Small bowel and colon are normal in caliber and distribution. Normal appendix is visualized in the right lower quadrant without findings of appendicitis. Ascites: Absent Lymphadenopathy: No mesenteric, retroperitoneal or periportal lymphadenopathy. Abdominal Wall and Mesentery: Unremarkable. Vasculature: The visualized abdominal aorta is normal in size and caliber. Evaluation of abdominal and pelvic vessels is limited due to lack of intravenous contrast. Pelvic Organs: Unremarkable Musculoskeletal: No aggressive focal bony lesions, acute fractures or dislocation. IMPRESSION: No acute abdominal or pelvic findings. Radiation optimization: All CT scans at this facility use at least one of these dose optimization techniques: automated exposure control mA and/or kV adjustment per patient size (includes targeted exams where dose is matched to cl inical indication) or iterative reconstruction. Time of 1ST Reevaluation: 00:45 Reevaluation 1ST: Unchanged Patient Education/Counseling: Need For Follow Up Family Education/Counseling: No Family Present SEPSIS Sepsis Screen Date sepsis recognized/suspect: Feb 20, 2025 Time Sepsis recognized/suspect: 0023 Recent Procedure: No On Antibiotic Therapy: No Respiratory Rate >20: No Heart Rate >90: Yes Temp<36 C (96.8 F) or >38.3 C: No SBP <90 or MAP <65 mmHG: No New Acute Mental Status Change: No Is the patient on CPAP, BIPAP,: No Physician Orders Ct Ab Pel Wo Con-No Oral Or Iv (02/20/25 03:41) Vital Signs Date Time Temp Pulse Resp B/P (MAP) Pulse Ox O2 Delivery O2 Flow Rate FiO2 02/20/25 04:29 97.6 82 16 136/86 (103) 99 97.6 02/20/25 01:42 Room Air* 0 21 02/20/25 01:31 97.8 92 16 135/88 (104) 100 97.8 02/20/25 00:22 97.4 95 16 133/88 99 97.4 Laboratory Tests Test 02/20/25 00:52 Lactic Acid Level 0.6 mmol/L (0.4-2.0) White Blood Count 8.3 10^3/uL (4.4-10.8) Medications Medications Dose Ordered Sig/Berenice Route Start Time Stop Time Status Last Admin Dose Admin Acetaminophen 650 mg ONCE ONCE PO 02/20/25 00:45 02/20/25 00:46 DC 02/20/25 01:42 Ketorolac Tromethamine 30 mg ONCE ONCE IM 02/20/25 00:45 02/20/25 00:46 DC 02/20/25 01:41 Tramadol HCl 50 mg ONCE ONCE PO 02/20/25 00:45 02/20/25 00:46 DC 02/20/25 01:41 Departure 1 Departure Time of Disposition: 04:36 Impression: Primary Impression: Abdominal pain Disposition: HOME / SELF CARE / HOMELESS Condition: Stable Additional Instructions: ED DISCHARGE INSTRUCTIONS Instructions: Please read all instructions provided in this packet carefully. Although you have been discharged from the Emergency Department, this does not mean that you have a "clean bill of health". No definitive diagnosis for your symptoms has been made today. It is possible that you are in the process of developing a serious illness. This is why you must return to the ED without fail if any new or worsening symptoms (especially if your symptoms include chest pain, trouble breathing, abdominal pain, fever, headache, confusion, trouble seeing, or trouble walking) It is also very important that you see a primary care provider (PCP) within the next 1-3 days to follow up. If you are unable to get an appointment, return to the ED for re-evaluation. Abdominal Pain: Care Instructions Overview Abdominal pain has many possible causes. Some aren't serious and get better on their own in a few days. Others need more testing and treatment. If your pain continues or gets worse, you need to be rechecked and may need more tests to find out what is wrong. You may need surgery to correct the problem. Don't ignore new symptoms, such as fever, nausea and vomiting, urination problems, pain that gets worse, and dizziness. These may be signs of a more serious problem. If you are not getting better, you may need more tests or treatment. The doctor has checked you carefully, but problems can develop later. If you notice any problems or new symptoms, get medical treatment right away. Follow-up care is a [place] part of your treatment and safety. Be sure to make and go to all appointments, and call your doctor if you are having problems. It's also a good idea to know your test results and keep a list of the medicines you take. How can you care for yourself at home? Rest until you feel better. To prevent dehydration, drink plenty of fluids. Choose water and other clear liquids until you feel better. If you have kidney, heart, or liver disease and have to limit fluids, talk with your doctor before you increase the amount of fluids you drink. When you feel like eating, start with small amounts. Do not have alcohol, caffeine, or spicy, hot, or high-fat foods for a day or two. Avoid anti-inflammatory medicines such as aspirin, ibuprofen (Advil, Motrin), and naproxen (Aleve). These can cause stomach upset. Talk to your doctor if you take daily aspirin for another health problem. When should you call for help? Call 911 anytime you think you may need emergency care. For example, call if: You passed out (lost consciousness). You pass maroon or very bloody stools. You vomit blood or what looks like coffee grounds. You have severe belly pain. Call your doctor now or seek immediate medical care if: Your pain gets worse, especially if it becomes focused in one area of your belly. You have a new or higher fever. Your stools are black and look like tar, or they have streaks of blood. You have unexpected vaginal bleeding. You have symptoms of a urinary tract infection. These may include: Pain when you urinate. Urinating more often than usual. Blood in your urine. You are dizzy or lightheaded, or you feel like you may faint. Watch closely for changes in your health, and be sure to contact your doctor if: You are not getting better as expected. Credits for Abdominal Pain: Care Instructions Current as of: January 28, 2023 Author: Coleen Portfolium [facility] Staff Clinical Review Board All [employer] education is reviewed by a team that includes physicians, nurses, advanced practitioners, registered dieticians, and other healthcare professionals. e-Prescriptions Acetaminophen (Acetaminophen Er) 650 Mg Tab 650 MG PO TIDPRN PRN, #15 TAB Prov: JACQUELINE FORRESTER MD 02/20/25 Comments 39-year-old female presented with right lower quadrant abdominal pain. No peritoneal signs on abdominal exam. No evidence of acute abdomen at this time. patient is well appearing. Labs show no leukocytosis imaging shows no acute process. At the time of discharge patient is afebrile and is not hypotensive. Low suspicion for acute hepatobiliary disease (including acute cholecystitis, acute pancreatitis, PUD (including perforation), acute infectious process (pneumonia, hepatitis, pyelonephritis), acute appendicitis, vascular catastrophe, bowel obstructions, viscous perforation. Presentation not consi stent with other acute, emergent causes of abdominal pain at this time. Patient felt stable for discharge home to follow up with the primary care provider promptly. Patient advised to return to the emergency department with any new, worsening or concerning symptoms. Critical Care Note Critical Care Time?: No Stability Stability form required: No Heart Score Heart Score: Heart Score Response (Comments) Value History N/A 0 EKG N/A 0 Age N/A 0 Risk Factors N/A 0 Troponin N/A 0 Total 0 I personally scribed for JACQUELINE FORRESTER MD ([email or web address]) on 02/20/25 at 00:49. Electronically submitted by Leon Gaytan (Localler). I personally scribed for JACQUELINE FORRESTER MD ([email or web address]) on 02/20/25 at 04:35. Electronically submitted by Leon Gaytan (Localler). JACQUELINE FORRESTER MD Feb 20, 2025 00:49
[2025-02-20 01:14] LABS: Hemoglobin 11.3 g/dL (12.2-16.2); Nucleated Red Blood Cells % 0.0 %
[2025-02-20 01:15] LABS: Hematocrit 34.8 % (36.0-46.0); Mean Corpuscular Hemoglobin 24.5 pg (28.0-32.0); Mean Corpuscular Volume 75.5 fL (80.0-100.0)
[2025-02-20 01:25] LABS: Alanine Aminotransferase 20 U/L (7-40); Albumin 4.4 g/dL (3.2-4.8); Alkaline Phosphatase 80 U/L (46-116); Anion Gap 10 (5-15); BUN/Creatinine Ratio 11.8 (10.0-20.0); Calcium 9.2 mg/dL (8.7-10.4); Carbon Dioxide 28 mmol/L (20-31); Chloride 101 mmol/L (98-107); Glucose 89 mg/dL (74-106); Lipase 35 U/L (12-53); Sodium 139 mmol/L (136-145); Total Protein 8.0 g/dL (5.7-8.2)
[2025-02-20 01:29] LABS: Bilirubin, Total 0.3 mg/dL (0.2-1.0); Blood Urea Nitrogen 9 mg/dL (9-23); Potassium 3.3 mmol/L (3.5-5.1)
[2025-02-20] MEDS: KETOROLAC TROMETH 30 MG/ML 1ML VIAL IM ONE (01:41)
[2025-02-20] MEDS: ACETAMINOPHEN 325 MG TAB PO ONE (01:42)
[2025-02-20 03:15] LABS: Urine Protein, UAD TRACE (Negative)
--- NOTE | 2025-02-20 04:28 | DVH ---
Exam: CT CT AB PEL WO CON-NO ORAL OR IV History: Right lower quadrant abdominal pain Comparison Study: CT CT AB PEL WITH IV CON ONLY on DOS: 08/30/24 Technique: Multidetector spiral CT of the abdomen was performed from lung bases to pubic symphysis. Imaging was performed without IV contrast. Axial, coronal and sagittal multiplanar reformats were obtained from the axial data set by the technologist. Radiation Dose : 1. Abdomen/Pelvis: CTDIvol 18.02 mGy, DLP 1029.65 mGy*cm. Findings: Evaluation of solid organs is limited due to lack of intravenous contrast use. Lung Bases: No acute or significant lung base finding. Normal heart size. No pleural or pericardial effusion. Liver: The liver is normal in size. No focal lesions. Gallbladder and Biliary Tree: Gallbladder is surgically absent. Spleen: Unremarkable Pancreas: The pancreas is grossly normal in appearance. Adrenal Glands: Unremarkable Kidneys: Kidneys are grossly normal without calculi or hydronephrosis. Bladder: Grossly unremarkable for degree of distention. Bowel: The stomach is grossly normal in appearance. Small bowel and colon are normal in caliber and distribution. Normal appendix is visualized in the right lower quadrant without findings of appendicitis. Ascites: Absent Lymphadenopathy: No mesenteric, retroperitoneal or periportal lymphadenopathy. Abdominal Wall and Mesentery: Unremarkable. Vasculature: The visualized abdominal aorta is normal in size and caliber. Evaluation of abdominal and pelvic vessels is limited due to lack of intravenous contrast. Pelvic Organs: Unremarkable Musculoskeletal: No aggressive focal bony lesions, acute fractures or dislocation. IMPRESSION: No acute abdominal or pelvic findings. Radiation optimization: All CT scans at this facility use at least one of these dose optimization techniques: automated exposure control mA and/or kV adjustment per patient size (includes targeted exams where dose is matched to clinical indication) or iterative reconstruction.
[2025-02-20 04:29] VITALS: BP 136/86; PULSE 82; RESP 16; TEMP 97.6; O2SAT 99
[2025-02-20] MEDS ORDERED: ACET650T12 PO (04:37)
== END 2025-02-20 04:55 | disposition home or self-care (01) ==
LOC: ER 00:21
DX: R10.31 Right lower quadrant pain (principal); J45.909 Unspecified asthma, uncomplicated; Z79.899 Other long term (current) drug therapy; Z90.49 Acquired absence of other specified parts of digestive tract
CPT/HCPCS: 36415; 74176; 80053; 81001; 83605; 83690; 85025; 96372; 99285; J1885